=== PATIENT | male | born 2000 | race American Indian/Alaskan Native ===

== ENCOUNTER 2023-07-08 15:33 | Emergency (ER) | payer MEDICAID ==
[~2023-07-08] VITALS: Ht 180.3 cm; Wt 81.8 kg
[2023-07-08 16:00] VITALS: BP 135/64; PULSE 48; RESP 16; TEMP 98; O2SAT 97
== END 2023-07-08 18:50 | disposition left against medical advice (07) ==
LOC: ER 15:34
DX: B35.9 Dermatophytosis, unspecified (principal); Z53.21 Procedure and treatment not carried out due to patient leaving prior to being seen by health care provider
CPT/HCPCS: 99281